=== PATIENT | female | born 1945 | race Caucasian/White ===

== ENCOUNTER 2017-03-10 17:24 | Inpatient (IN) | payer MEDICARE, OTHER ==
[~2017-03-10] VITALS: Ht 165.1 cm; Wt 61.3 kg
[~2017-03-10 17:24] MED LIST: ALPR0.5T8 PO; ASPI-991 PO; ATOR40TA PO; BENA40TA2 PO; FENO145T20 PO; LEVO75TA7 PO; LORA1TAB PO; ONDA-25 PO; PROC10TA PO
[2017-03-10] MEDS ORDERED: ALBUTEROL FS 2.5 MG/0.5 ML VIAL.NEB NEB ONE (18:00)
[2017-03-10] MEDS ORDERED: IPRATROPIUM NEB FS 0.5 MG/2.5 ML AMPUL.NEB NEB ONE (18:00)
[2017-03-10 18:09] LABS: BASOPHILS # (AUTO) 0.2 /CMM (0.0-0.2); BASOPHILS % (AUTO) 2.2 % (0.0-2.0); EOSINOPHILS # (AUTO) 0.1 /CMM (0.0-0.7); EOSINOPHILS % (AUTO) 0.8 % (0.0-6.0); HEMATOCRIT 36 % (33-45); HEMOGLOBIN 11.8 g/dL (11.5-14.8); LYMPHOCYTES # (AUTO) 0.8 /CMM (0.8-4.8); LYMPHOCYTES % (AUTO) 7.5 % (20.0-44.0); MEAN CORPUSCULAR HEMOGLOBIN 28 PG (26.0-33.0); MEAN CORPUSCULAR HGB CONC 33 g/dl (31.0-36.0); MEAN CORPUSCULAR VOLUME 85 fL (82-100); MONOCYTES # (AUTO) 0.5 /CMM (0.1-1.30); MONOCYTES % (AUTO) 4.5 % (2.0-12.0); NEUTROPHILS # (AUTO) 9.5 /CMM (1.8-8.9); PLATELET COUNT (AUTO) 336 /CMM (150-450); RDW COEFFICIENT OF VARIATION 14.8 (11.5-15.0); RED BLOOD CELL COUNT(AUTO) 4.23 MIL/uL (4.0-5.2); WHITE BLOOD COUNT (AUTO) 11.1 K/uL (4.3-11.0)
[2017-03-10 18:20] LABS: CALCIUM, SERUM 8.7 mg/dL (8.5-10.1); CARBON DIOXIDE 34 mmol/L (21-32); CHLORIDE 91 mmol/L (98-107); CREATININE 1.1 mg/dL (0.6-1.3); GLUCOSE 142 mg/dL (74-106); POTASSIUM 3.4 mmol/L (3.5-5.1); SODIUM SERUM 131 mmol/L (136-145); UREA NITROGEN, BLOOD 16 mg/dL (7-18)
[2017-03-10 18:25] LABS: ALANINE AMINOTRANSFERASE 33 U/L (12-78); ALBUMIN 2.7 g/dL (3.4-5.0); ALCOHOL, BLOOD < 3 mg/dL (0-0); ALKALINE PHOSPHATASE 125 U/L (46-116); ASPARTATE AMINOTRANSFERASE 41 U/L (15-37); BILIRUBIN,DIRECT 0.1 mg/dL (0.0-0.2); BILIRUBIN,TOTAL 0.3 mg/dL (0.2-1.0); SALICYLATE 4.2 mg/dL (2.8-20.0); TOTAL PROTEIN, SERUM 7.5 g/dL (6.4-8.2)
[2017-03-10 18:29] LABS: INR 1.03 (0.87-1.13); PROTHROMBIN TIME 10.7 SECS (9.5-12.7)
[2017-03-10 18:33] LABS: TROPONIN I 0.025 ng/mL (0.00-0.056)
[2017-03-10 18:36] LABS: THYROID STIMULATING HORMONE 2.545 uIU/mL (0.358-3.74)
[2017-03-10] MEDS ORDERED: LEVO50TA8 PO (18:55)
[2017-03-10] MEDS ORDERED: LOSA1TAB36 PO (18:55)
[2017-03-10 19:12] LABS: APPEARANCE,URINE Clear (CLEAR); BILIRUBIN,URINE Negative (NEGATIVE); BLOOD, URINE Negative Ery/uL (NEGATIVE); COLOR,URINE Yellow (YELLOW); KETONES,URINE Negative (NEGATIVE); LEUKOCYTE ESTERASE ,URINE Negative (NEGATIVE); NITRITE, URINE Negative (NEGATIVE); PROTEIN,URINE Negative (NEGATIVE); UGLUCOSE Negative (NEGATIVE); UROBILINOGEN,URINE 0.2 EU/dL (0.2)
[2017-03-10 19:13] LABS: ACETAMINOPHEN 0 ug/ml (10-30)
[2017-03-10] MEDS ORDERED: LORAZEPAM INJ 2 MG/ML VIAL ONE (19:19)
[2017-03-10] MEDS ORDERED: LORAZEPAM INJ 2 MG/ML VIAL IV ONE (19:30)
[2017-03-10 21:00] VITALS: BP 108/62
[2017-03-10] MEDS ORDERED: MAGNESIUM HYDROXIDE 30 ML UDC PO PRN (21:00)
[2017-03-10] MEDS ORDERED: ACETAMINOPHEN 325 MG TABLET PO PRN (21:00)
[2017-03-10] MEDS ORDERED: MAG HYDROX/AL HYDROX/SIMETH 30 ML UDC PO PRN (21:00)
[2017-03-10] MEDS ORDERED: TEMAZEPAM 7.5 MG CAPSULE PO PRN (21:00)
[2017-03-10] MEDS ORDERED: ALBU8.5H2 PO (22:53)
[2017-03-10] MEDS ORDERED: GEMF600T3 PO (22:53)
[2017-03-10] MEDS ORDERED: VARE1TAB PO (22:57)
[2017-03-10] MEDS ORDERED: clonazePAM 0.5 MG TABLET ONE (23:09)
[2017-03-10] MEDS: clonazePAM 0.5 MG TABLET PO PRN (23:11)
[2017-03-11] MEDS ORDERED: GUAIFENESIN/D-METHORPHAN HB 5 ML UDC PO PRN (02:00)
[2017-03-11] MEDS ORDERED: IPRATROPIUM NEB FS 0.5 MG/2.5 ML AMPUL.NEB ONE (02:22)
[2017-03-11] MEDS ORDERED: ALBUTEROL FS 2.5 MG/0.5 ML VIAL.NEB ONE (02:22)
[2017-03-11] MEDS: ALBUTEROL FS 2.5 MG/0.5 ML VIAL.NEB NEB PRN ×3 (02:24→18:15)
[2017-03-11] MEDS: IPRATROPIUM NEB FS 0.5 MG/2.5 ML AMPUL.NEB NEB PRN ×3 (02:24→18:16)
[2017-03-11 08:00] VITALS: BP 131/71
[2017-03-11] MEDS: LOSARTAN/HCTZ 50-12.5MG/ 1 EA TABLET PO SCH (08:42)
[2017-03-11] MEDS: LEVOTHYROXINE SODIUM 50 MCG TABLET PO SCH (08:42)
[2017-03-11] MEDS ORDERED: ALBUTEROL SULFATE 8 GM HFA.AER.AD IH PRN (09:30)
[2017-03-11 12:15] LABS: BASOPHILS % (AUTO) 0.4 % (0.0-2.0); EOSINOPHILS # (AUTO) 0.1 /CMM (0.0-0.7); HEMATOCRIT 36 % (33-45); HEMOGLOBIN 12.1 g/dL (11.5-14.8); LYMPHOCYTES # (AUTO) 0.7 /CMM (0.8-4.8); LYMPHOCYTES % (AUTO) 7.1 % (20.0-44.0); MEAN CORPUSCULAR HEMOGLOBIN 28 PG (26.0-33.0); MEAN CORPUSCULAR HGB CONC 34 g/dl (31.0-36.0); MEAN CORPUSCULAR VOLUME 84 fL (82-100); MONOCYTES # (AUTO) 0.5 /CMM (0.1-1.30); MONOCYTES % (AUTO) 4.7 % (2.0-12.0); NEUTROPHILS # (AUTO) 8.8 /CMM (1.8-8.9); NEUTROPHILS % (AUTO) 86.8 % (43.0-81.0); PLATELET COUNT (AUTO) 305 /CMM (150-450); RDW COEFFICIENT OF VARIATION 15.6 (11.5-15.0); RED BLOOD CELL COUNT(AUTO) 4.29 MIL/uL (4.0-5.2); WHITE BLOOD COUNT (AUTO) 10.1 K/uL (4.3-11.0)
[2017-03-11 12:33] LABS: CHOLESTEROL 198 mg/dL (<200); HDL CHOLESTEROL 40 mg/dL (40-60); LDL 129 mg/dL (0-99); TRIGLYCERIDES 143 mg/dL (30-150)
[2017-03-11 12:46] LABS: POTASSIUM 4.3 mmol/L (3.5-5.1); SODIUM SERUM 137 mmol/L (136-145)
[2017-03-11 12:47] LABS: CALCIUM, SERUM 9.2 mg/dL (8.5-10.1); CARBON DIOXIDE 33 mmol/L (21-32); CHLORIDE 96 mmol/L (98-107); CREATININE 0.8 mg/dL (0.6-1.3); GLUCOSE 105 mg/dL (74-106); UREA NITROGEN, BLOOD 13 mg/dL (7-18)
[2017-03-11] MEDS: clonazePAM 0.5 MG TABLET PO PRN ×2 (13:33→19:55)
[2017-03-11 16:00] VITALS: BP 147/71
[2017-03-11 20:47] VITALS: BP 138/78
[2017-03-11] MEDS ORDERED: QUETIAPINE FUMARATE 25 MG TABLET PO SCH (22:00)
[2017-03-12 07:30] LABS: THYROID STIMULATING HORMONE 1.071 uIU/mL (0.358-3.74)
[2017-03-12] MEDS: LEVOTHYROXINE SODIUM 50 MCG TABLET PO SCH (07:30)
[2017-03-12 08:47] VITALS: BP 180/62
[2017-03-12] MEDS: LOSARTAN/HCTZ 50-12.5MG/ 1 EA TABLET PO SCH (08:47)
[2017-03-12] MEDS: clonazePAM 0.5 MG TABLET PO PRN (08:57)
[2017-03-12] MEDS ORDERED: NICOTINE PATCH (7MG) 7 MG PATCH.TD24 TD SCH (09:00)
[2017-03-12] MEDS ORDERED: GEMFIBROZIL 600 MG TABLET PO SCH (09:00)
== END 2017-03-12 12:00 | disposition home or self-care (01) | DRG 885 ==
LOC: ER 17:26 → GPS 20:17
PROVIDERS: ADMIT Internal Medicine; ATTEND Psychiatry & Neurology Psychiatry
DX: F39 Unspecified mood [affective] disorder (principal); F11.20 Opioid dependence, uncomplicated; F03.91 Unspecified dementia, unspecified severity, with behavioral disturbance; J44.9 Chronic obstructive pulmonary disease, unspecified; E44.1 Mild protein-calorie malnutrition; E87.1 Hypo-osmolality and hyponatremia; D63.8 Anemia in other chronic diseases classified elsewhere; D72.829 Elevated white blood cell count, unspecified; E03.9 Hypothyroidism, unspecified; E78.5 Hyperlipidemia, unspecified; E87.6 Hypokalemia; F17.210 Nicotine dependence, cigarettes, uncomplicated; F32.9 Major depressive disorder, single episode, unspecified; Z85.3 Personal history of malignant neoplasm of breast; Z90.12 Acquired absence of left breast and nipple; K21.9 Gastro-esophageal reflux disease without esophagitis; I10 Essential (primary) hypertension; Z73.6 Limitation of activities due to disability; Z68.22 Body mass index [BMI] 22.0-22.9, adult; Z79.899 Other long term (current) drug therapy; Z85.118 Personal history of other malignant neoplasm of bronchus and lung
CPT/HCPCS: 36415; 70450-TC; 71010-TC; 80048-TC; 80061-TC; 80076-TC; 80305; 81000-TC; 83540-TC; 84443-TC; 84484-TC; 85025-TC; 85730-TC; 87081-TC; A4606; G0480; J2060; Z7610

== ENCOUNTER 2017-04-03 19:06 | Emergency (ER) | payer MEDICARE, OTHER ==
[~2017-04-03] VITALS: Ht 165.1 cm; Wt 68.0 kg
[~2017-04-03 19:06] MED LIST changes: +ALBU8.5H2 PO; -ASPI-991 PO; -ATOR40TA PO; -FENO145T20 PO; +LEVO50TA8 PO; -LEVO75TA7 PO; -LORA1TAB PO; +LOSA1TAB36 PO; -ONDA-25 PO; -PROC10TA PO; +VARE1TAB PO
--- NOTE | 2017-04-03 19:13 | NUR ---
PT BIBSELF C/O SOB AND FEELING ANXIOUS SINCE THIS MORNING. PT STATES "HER USUAL MEDICATIONS ARE NOT WORKING" PT AOX3 RR EVEN AND UNLABORED. NO SOB NOTED. NAD NOTED. NO NVD AT THIS TIME. PT GOWNED AND PLACED ON MONITOR WAITING FOR MD LEW.
--- NOTE | 2017-04-03 19:50 | NUR ---
PT REFUSED IV, RISK AND BENEFITS EXPLAINED X 3. PT STRONGLY REFUSED. PT OKAY WITH LAB TO DRAW BLOOD. DR CHARLTON MADE AWARE
[2017-04-03 19:58] LABS: BASOPHILS # (AUTO) 0.2 /CMM (0.0-0.2); BASOPHILS % (AUTO) 3.4 % (0.0-2.0); EOSINOPHILS # (AUTO) 0.1 /CMM (0.0-0.7); EOSINOPHILS % (AUTO) 1.2 % (0.0-6.0); HEMATOCRIT 33 % (33-45); LYMPHOCYTES # (AUTO) 0.8 /CMM (0.8-4.8); LYMPHOCYTES % (AUTO) 13.5 % (20.0-44.0); MEAN CORPUSCULAR HEMOGLOBIN 29 PG (26.0-33.0); MEAN CORPUSCULAR HGB CONC 33 g/dl (31.0-36.0); MEAN CORPUSCULAR VOLUME 86 fL (82-100); MONOCYTES # (AUTO) 0.5 /CMM (0.1-1.30); MONOCYTES % (AUTO) 7.9 % (2.0-12.0); NEUTROPHILS # (AUTO) 4.6 /CMM (1.8-8.9); PLATELET COUNT (AUTO) 165 /CMM (150-450); RED BLOOD CELL COUNT(AUTO) 3.85 MIL/uL (4.0-5.2); WHITE BLOOD COUNT (AUTO) 6.2 K/uL (4.3-11.0)
--- NOTE | 2017-04-03 20:03 | NUR ---
Juve espinosa in ED - 04/03/17 at [address] CHARLTON AT BEDSIDE SPEAKING TO PT REGARDING RESULTS
--- NOTE | 2017-04-03 20:04 | NUR ---
Note undone in EDM - 04/03/17 at 2006 by JORDY IV removed. Catheter intact and site benign. Pressure and 4x4 applied to site. No bleeding noted. Patient discharged to home in stable condition. Written and verbal after care instructions given. Patient verbalizes understanding of instruction. pt ambulatory with a steady gait. instructed not to drive. pt verbalize understanding. accompanied by family
[2017-04-03 20:11] LABS: CALCIUM, SERUM 8.7 mg/dL (8.5-10.1); CARBON DIOXIDE 29 mmol/L (21-32); CHLORIDE 102 mmol/L (98-107); CREATININE 1.2 mg/dL (0.6-1.3); GLUCOSE 103 mg/dL (74-106); POTASSIUM 3.5 mmol/L (3.5-5.1); SODIUM SERUM 137 mmol/L (136-145); UREA NITROGEN, BLOOD 22 mg/dL (7-18)
[2017-04-03 20:25] LABS: ALANINE AMINOTRANSFERASE 12 U/L (12-78); ALBUMIN 3.3 g/dL (3.4-5.0); ALKALINE PHOSPHATASE 96 U/L (46-116); ASPARTATE AMINOTRANSFERASE 19 U/L (15-37); BILIRUBIN,DIRECT 0.1 mg/dL (0.0-0.2); BILIRUBIN,TOTAL 0.3 mg/dL (0.2-1.0); TOTAL PROTEIN, SERUM 7.4 g/dL (6.4-8.2)
--- NOTE | 2017-04-03 20:45 | NUR ---
Patient discharged to home in stable condition. Written and verbal after care instructions given. Patient verbalizes understanding of instruction. ambulatory with a steady gait
[2017-04-03 23:46] VITALS: BP 122/78
== END 2017-04-03 20:45 | disposition home or self-care (01) ==
LOC: ER 19:08
DX: F41.9 Anxiety disorder, unspecified (principal); F03.90 Unspecified dementia, unspecified severity, without behavioral disturbance, psychotic disturbance, mood disturbance, and anxiety; I10 Essential (primary) hypertension; J44.9 Chronic obstructive pulmonary disease, unspecified; F17.200 Nicotine dependence, unspecified, uncomplicated; Z85.118 Personal history of other malignant neoplasm of bronchus and lung; Z85.3 Personal history of malignant neoplasm of breast; Z88.0 Allergy status to penicillin; Z90.12 Acquired absence of left breast and nipple
CPT/HCPCS: 36415; 71010; 80048; 80076; 84484; 85025; 93005; 99285; A4606; Z7610

== ENCOUNTER 2017-07-20 16:51 | Emergency (ER) | payer MEDICARE, OTHER ==
[~2017-07-20] VITALS: Ht 162.6 cm; Wt 56.2 kg
[~2017-07-20 16:51] MED LIST changes: -ALBU8.5H2 PO; +ALBU8.5H8 PO
--- NOTE | 2017-07-20 16:55 | NUR ---
AAOX3, [id number] FROM HOME FOR COUGH, N/V. RR IS EVEN AND UNLABORED WITH NAD NOTED. SKIN IS WARM AND DRY. AWAITING MD FOR EVAL.
[2017-07-20] MEDS ORDERED: ONDANSETRON HCL/PF 4 MG/2 ML VIAL IVP ONE (17:00)
[2017-07-20] MEDS ORDERED: IV NS 0.9% 1,000 ML BAG IV ONE (17:00)
[2017-07-20 17:10] LABS: BASOPHILS % (AUTO) 0.5 % (0.0-2.0); EOSINOPHILS % (AUTO) 0.1 % (0.0-6.0); HEMATOCRIT 47 % (33-45); LYMPHOCYTES # (AUTO) 0.6 /CMM (0.8-4.8); MEAN CORPUSCULAR HEMOGLOBIN 29 PG (26.0-33.0); MEAN CORPUSCULAR HGB CONC 34 g/dl (31.0-36.0); MEAN CORPUSCULAR VOLUME 85 fL (82-100); MONOCYTES # (AUTO) 0.2 /CMM (0.1-1.30); MONOCYTES % (AUTO) 3.6 % (2.0-12.0); NEUTROPHILS # (AUTO) 5.3 /CMM (1.8-8.9); NEUTROPHILS % (AUTO) 85.8 % (43.0-81.0); PLATELET COUNT (AUTO) 185 /CMM (150-450); RED BLOOD CELL COUNT(AUTO) 5.48 MIL/uL (4.0-5.2); WHITE BLOOD COUNT (AUTO) 6.1 K/uL (4.3-11.0)
[2017-07-20 17:23] LABS: CALCIUM, SERUM 9.4 mg/dL (8.5-10.1); CARBON DIOXIDE 28 mmol/L (21-32); CHLORIDE 102 mmol/L (98-107); CREATININE 1.2 mg/dL (0.6-1.3); GLUCOSE 156 mg/dL (74-106); POTASSIUM 4.3 mmol/L (3.5-5.1); SODIUM SERUM 137 mmol/L (136-145); UREA NITROGEN, BLOOD 30 mg/dL (7-18)
[2017-07-20 17:28] LABS: ALANINE AMINOTRANSFERASE 8 U/L (12-78); ALKALINE PHOSPHATASE 123 U/L (46-116); ASPARTATE AMINOTRANSFERASE 18 U/L (15-37); BILIRUBIN,DIRECT 0.1 mg/dL (0.0-0.2); BILIRUBIN,TOTAL 0.6 mg/dL (0.2-1.0); LIPASE 140 U/L (73-393); TOTAL PROTEIN, SERUM 8.4 g/dL (6.4-8.2)
--- NOTE | 2017-07-20 17:30 | NUR ---
Patient is resting comfortably in bed with eyes closed. Easily aroused. VSS
[2017-07-20] MEDS ORDERED: ONDANSETRON HCL/PF 4 MG/2 ML VIAL ONE (17:48)
--- NOTE | 2017-07-20 18:44 | NUR ---
REPORT GIVEN TO OLVIN MAXWELL FOR [facility]YLER.
--- NOTE | 2017-07-20 18:55 | NUR ---
Patient is resting in er bed, no distress noted. ER bed in low position, side rails up. Will continue to monitor
[2017-07-20 18:57] LABS: APPEARANCE,URINE Clear (CLEAR); BILIRUBIN,URINE Negative (NEGATIVE); BLOOD, URINE Small Ery/uL (NEGATIVE); COLOR,URINE Yellow (YELLOW); KETONES,URINE Negative (NEGATIVE); LEUKOCYTE ESTERASE ,URINE Negative (NEGATIVE); NITRITE, URINE Negative (NEGATIVE); PH,URINE 6.5 (5.0-8.0); PROTEIN,URINE Negative (NEGATIVE); UGLUCOSE Negative (NEGATIVE); UROBILINOGEN,URINE 0.2 EU/dL (0.2)
[2017-07-20 19:00] LABS: BACTERIA,URINE Few /HPF (None Seen); SQUAMOUS EPITHELIAL CELL,UR Many /HPF (None Seen)
[2017-07-20 20:39] VITALS: BP 150/85
== END 2017-07-20 20:42 | disposition home or self-care (01) ==
LOC: ER 16:54
DX: R11.2 Nausea with vomiting, unspecified (principal); R10.84 Generalized abdominal pain; F03.90 Unspecified dementia, unspecified severity, without behavioral disturbance, psychotic disturbance, mood disturbance, and anxiety; I10 Essential (primary) hypertension; F17.200 Nicotine dependence, unspecified, uncomplicated; E78.00 Pure hypercholesterolemia, unspecified; Z85.118 Personal history of other malignant neoplasm of bronchus and lung; Z85.3 Personal history of malignant neoplasm of breast; Z88.0 Allergy status to penicillin
CPT/HCPCS: 36415; 74176; 76856; 80048; 80076; 81001; 83690; 85025; 96361; 96374; 99285; A4606; J2405; 81000-TC; Z7610

== ENCOUNTER 2017-11-04 14:30 | Emergency (ER) | payer MEDICARE, OTHER ==
[~2017-11-04] VITALS: Ht 162.6 cm; Wt 58.1 kg
[~2017-11-04 14:30] MED LIST changes: -BENA40TA2 PO; +BENA40TA8 PO
--- NOTE | 2017-11-04 14:30 | NUR ---
BB DAUGHTER FOR VOMITTING SINCE 1100AM TODAY, PER DAUGHTER THE PT IS NOT EATING WELL FOR THE LAST WEEK. ASSSISTED VIA WHEELCHAIR TO ED BED 13. NAD VSS RR EVEN AND UNLABORED. PENDING ER MD LEW
[2017-11-04] MEDS ORDERED: QUETIAPINE FUMARATE 25 MG TABLET PO STA (14:58)
[2017-11-04] MEDS ORDERED: ONDANSETRON HCL/PF 4 MG/2 ML VIAL IV ONE (15:00)
[2017-11-04] MEDS ORDERED: ONDANSETRON HCL/PF 4 MG/2 ML VIAL ONE (15:07)
--- NOTE | 2017-11-04 15:07 | NUR ---
ASSUMED CARE OF PT.
[2017-11-04] MEDS ORDERED: QUETIAPINE FUMARATE 25 MG TABLET ONE (15:08)
[2017-11-04 15:11] LABS: BASOPHILS # (AUTO) 0.3 /CMM (0.0-0.2); BASOPHILS % (AUTO) 3.2 % (0.0-2.0); EOSINOPHILS % (AUTO) 0.9 % (0.0-6.0); HEMATOCRIT 46 % (33-45); HEMOGLOBIN 15.1 g/dL (11.5-14.8); LYMPHOCYTES # (AUTO) 0.9 /CMM (0.8-4.8); LYMPHOCYTES % (AUTO) 10.7 % (20.0-44.0); MEAN CORPUSCULAR HGB CONC 33 g/dl (31.0-36.0); MEAN CORPUSCULAR VOLUME 84 fL (82-100); MONOCYTES # (AUTO) 0.3 /CMM (0.1-1.30); MONOCYTES % (AUTO) 3.5 % (2.0-12.0); NEUTROPHILS # (AUTO) 6.5 /CMM (1.8-8.9); NEUTROPHILS % (AUTO) 81.7 % (43.0-81.0); PLATELET COUNT (AUTO) 229 /CMM (150-450); RDW COEFFICIENT OF VARIATION 13.7 (11.5-15.0); RED BLOOD CELL COUNT(AUTO) 5.45 MIL/uL (4.0-5.2); WHITE BLOOD COUNT (AUTO) 8.1 K/uL (4.3-11.0)
[2017-11-04 15:20] LABS: CARBON DIOXIDE 31 mmol/L (21-32); CHLORIDE 101 mmol/L (98-107); CREATININE 1.4 mg/dL (0.6-1.3); GLUCOSE 137 mg/dL (74-106); POTASSIUM 4.3 mmol/L (3.5-5.1); SODIUM SERUM 142 mmol/L (136-145); UREA NITROGEN, BLOOD 16 mg/dL (7-18)
[2017-11-04 15:34] LABS: ALANINE AMINOTRANSFERASE 11 U/L (12-78); ALBUMIN 3.7 g/dL (3.4-5.0); ALKALINE PHOSPHATASE 114 U/L (46-116); ASPARTATE AMINOTRANSFERASE 15 U/L (15-37); BILIRUBIN,DIRECT 0.1 mg/dL (0.0-0.2); BILIRUBIN,TOTAL 0.4 mg/dL (0.2-1.0); LIPASE 127 U/L (73-393); TOTAL PROTEIN, SERUM 8.5 g/dL (6.4-8.2)
[2017-11-04] MEDS ORDERED: ALPRAZOLAM 0.25 MG TABLET ONE (15:58)
[2017-11-04] MEDS ORDERED: ALPRAZOLAM 0.25 MG TABLET PO ONE (16:00)
--- NOTE | 2017-11-04 16:25 | NUR ---
PT APPEARS TO BE RESTING COMFORTABLY. PT WANTS TO GO HOME. PT WAS 89% ON RA. PT PLACED ON 2L O2 VIA NC AND IS SATURATING AT 93%.
[2017-11-04 16:29] LABS: APPEARANCE,URINE Slightly Cloudy (CLEAR); BILIRUBIN,URINE Negative (NEGATIVE); BLOOD, URINE Negative Ery/uL (NEGATIVE); COLOR,URINE Yellow (YELLOW); KETONES,URINE Negative (NEGATIVE); LEUKOCYTE ESTERASE ,URINE Negative (NEGATIVE); NITRITE, URINE Negative (NEGATIVE); PH,URINE 7.5 (5.0-8.0); PROTEIN,URINE 30 mg/dl (NEGATIVE); UGLUCOSE Negative (NEGATIVE); UROBILINOGEN,URINE 0.2 EU/dL (0.2)
--- NOTE | 2017-11-04 16:36 | NUR ---
PT'S IV WAS BLEEDING AND HURT WHEN FLUSHED. IV REMOVED. NOTIFIED.
[2017-11-04 16:50] LABS: RBC,URINE 0-2 /HPF (0-2)
[2017-11-04 16:51] LABS: BACTERIA,URINE Few /HPF (None Seen); SQUAMOUS EPITHELIAL CELL,UR Moderate /HPF (None Seen)
[2017-11-04 17:08] VITALS: BP 168/85
== END 2017-11-04 17:11 | disposition home or self-care (01) ==
LOC: ER 14:34
DX: F41.9 Anxiety disorder, unspecified (principal); R11.2 Nausea with vomiting, unspecified; R10.13 Epigastric pain; I10 Essential (primary) hypertension; F03.90 Unspecified dementia, unspecified severity, without behavioral disturbance, psychotic disturbance, mood disturbance, and anxiety; J44.9 Chronic obstructive pulmonary disease, unspecified; F17.200 Nicotine dependence, unspecified, uncomplicated; Z85.3 Personal history of malignant neoplasm of breast; Z85.118 Personal history of other malignant neoplasm of bronchus and lung; Z90.12 Acquired absence of left breast and nipple; Z88.0 Allergy status to penicillin
CPT/HCPCS: 36415; 80048; 80076; 81001; 83690; 85025; 96374; 99284; A4606; J2405; 81000-TC; Z7610